=== PATIENT | female | born 1960 | race Caucasian/White ===

== ENCOUNTER 2023-03-02 16:06 | Emergency (ER) | payer OTHER, SELFPAY ==
--- NOTE | ~2023-03-02 | XR_ITS ---
EXAMINATION: XR finger 3rd LT min 2V DATE: 03/02/2023 17:35 INDICATION: Reassessment of the left third digit fracture following removal of bandaging material. TECHNIQUE: Dorsal palmar, lateral and oblique views of the left third digit were obtained COMPARISON: None FINDINGS: Likely comminuted tuft fracture at the distal tip of the left third distal phalanx. There is amputati on of portion of the overlying soft tissues and on the lateral projection this appears to also result in loss of at least a portion of the bone fragments of the palmar distal tip of the tuft. Remaining fragments. Remaining in near anatomic alignment. No other fractures identified. 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 IMPRESSION: 1. Comminuted likely open/compound tuft fracture of the left third distal phalanx with suggestion of loss of both some overlying soft tissue as well as a small portion of the bone at the palmar tip of t he tuft. Reviewed, dictated and finalized at location A. IMPRESSION: 1. Comminuted likely open/compound tuft fracture of the left third distal phala nx with suggestion of loss of both some overlying soft tissue as well as a smal l portion of the bone at the palmar tip of the tuft.
--- NOTE | ~2023-03-02 | XR_ITS ---
EXAMINATION: XR finger 3rd LT min 2V DATE: 03/02/2023 16:56 INDICATION: Left third digit smashed in a car door TECHNIQUE: Dorsal palmar, lateral and 2 oblique views of the left third digit were obtained COMPARISON: None FINDINGS: There is bandaging material surrounding the mid to distal aspects the left third digit which limits a ssessment of fine bone and soft tissue detail. There appears to be a minimally displaced tuft fractur e at the left third distal phalanx. There appears be some soft tissue gas overlying the tuft which co uld be consistent with an open/compound fracture. No other fractures identified. Aside from the tuft fracture the first bone alignment is normal. 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 IMPRESSION: 1. Likely open/compound tuft fracture at the distal tip of the left third distal phalanx. Assessment is somewhat limited by overlying bandaging material. Reviewed, dictated and finalized at location A. IMPRESSION: 1. Likely open/compound tuft fracture at the distal tip of the left third dista l phalanx. Assessment is somewhat limited by overlying bandaging material.
[2023-03-02 16:23] VITALS: BP 151/97; PULSE 99; RESP 16; TEMP 36.6; O2SAT 97
--- NOTE | 2023-03-02 17:17 | ED.WOUNDLAC ---
HPI - Wound/Laceration General Chief Complaint: Wound/Laceration Stated Complaint: finger wound Time Seen by Provider: 03/02/23 16:54 History of Present Illness HPI narrative: Patient is a 62-year-old right-handed female here for evaluation of a left third finger injury sustained earlier today. Patient states that she accidentally slammed her finger in a doorway. This led to a partial amputation of her fingertip. Unsure of her last tetanus shot. She has full range of motion in the finger. Related Data Allergies Allergy/AdvReac Type Severity Reaction Status Date / Time No Known Allergies Allergy Unverified 03/02/23 16:45 Review of Systems Review of Systems: Gen.: Denies fevers or chills Eyes: Denies eye pain or visual change ENT: Denies congestion Respiratory: Denies shortness of breath or cough CV: Denies chest pain or palpitations GI: Denies abdominal pain nausea, emesis or diarrhea denies burning, urgency, frequency or hematuria Musculoskeletal: Denies back pain or muscle pain Neuro: Denies numbness, tingling, weakness or focal weakness Skin reports wound to finger Except as documented, all other systems reviewed and negative Exam Narrative: Gen: Alert, oriented, no acute distress Eyes: EOMI, no icterus Pulm: Respirations even and unlabored, symmetric thorax expansion, no audible stridor or visible cyanosis CV: Regular rate per telemetry GI: No distension, no voluntary/involuntary guarding Neuro: AOx4, moves all extremities without apparent difficulty or weakness, follows commands MSK: FROM in left third finger. Skin: Patient's left third finger pad is actively bleeding/amputated. There is no exposed bone or tendon. The nailbed of the digit is intact. Psych: Normal mood/affect, insight/judgement good, adequate fund of knowledge, recent/remote memory intact Course Vital Signs Vital signs: Vital Signs Temperature 98 F 03/02/23 16:23 Pulse Rate 99 03/02/23 16:23 Respiratory Rate 16 03/02/23 16:23 Blood Pressure 151/97 H 03/02/23 16:23 Pulse Oximetry 97 03/02/23 16:23 Oxygen Delivery Room Air 03/02/23 16:23 Temperature 98 F 03/02/23 16:23 Pulse Rate 99 03/02/23 16:23 Respiratory Rate 16 03/02/23 16:23 Blood Pressure 151/97 H 03/02/23 16:23 Pulse Oximetry 97 03/02/23 16:23 Oxygen Delivery Room Air 03/02/23 16:23 Procedures Laceration Laceration 1: Date: 03/02/23 Time: 19:16 Site: other (finger) Side (If applicable): left Description: irregular Local Anesthetic: lidocaine 1% Amount of anesthesia used (mL): 2 Pre-repair: wound explored, irrigated, irrigated extensively and minor debridement ====== Skin Level ====== Skin layer closed with: other (chromic gut) Size (cm): 4-0 Number of sutures: 6 Technique: simple, interrupted ====== Subcutaneous Layer ====== ====== Muscle Layer ====== ====== Tendon Layer ====== MDM - Wound/Laceration MDM Narrative Medical decision making narrative: 62-year-old female here for evaluation of hand injury with partial amputation of her left third fingertip with evidence of a comminuted tuft fracture on the x-ray. Spoke with Dr. Guerrero, hand specialist at [facility], sent over photos of the x-ray and the hand, recommends thorough exploration to ensure there is no exposed bone, if not, recommends trying to pull together the skin as best as possible with absorbable sutures. This was done in the ED with good result. She also recommended placing a metal finger splint which was done in the ED. Patient's tetanus was updated. The wound was dressed, she was sent home with antibiotics and hand follow-up. We did discuss strict return precautions and she voiced understanding. Discharge Plan Discharge Clinical Impression: Open fracture of tuft of distal phalanx of finger Patient Disposition: Home, Self-Care Condition
[2023-03-02] MEDS: TETANUS,DIPHTHERIA,AC PERTUSSIS ADULT (0.5 ML) BOOSTRIX IM (17:37)
== END 2023-03-02 19:35 | disposition home or self-care (01) ==
PROVIDERS: Emergency Provider Physician Assistant; PCP Internal Medicine
DX: S62.633B Displaced fracture of distal phalanx of left middle finger, initial encounter for open fracture (principal); W23.0XXA Caught, crushed, jammed, or pinched between moving objects, initial encounter; Z23 Encounter for immunization
CPT/HCPCS: 12001; 73140; 90471; 90715; 99284